=== PATIENT | male | born 1990 | race Caucasian/White ===

== ENCOUNTER 2023-12-27 13:08 | Emergency (ER) | payer MEDICAID ==
[~2023-12-27] VITALS: Ht 170.2 cm; Wt 84.0 kg
[2023-12-27 13:11] VITALS: TEMP 97.9
[2023-12-27] MEDS: HYDROCODONE/ACETAMINOPHEN 5-325 MG TABLET PO ONE (15:48)
[2023-12-27] MEDS: LIDOCAINE 1% 10 ML VIAL PERC ONE (15:48)
[2023-12-27] MEDS: PERTUSS(ACELL),DIPH,TET/PF 0.5 ML SYRINGE [ADULT] IM. ONE (15:49)
[2023-12-27] MEDS: CeFAZolin 2 GM/DEXTROSE 50 ML IV ONE (16:24)
[2023-12-27] MEDS ORDERED: IBUP-1492 PO (17:33)
[2023-12-27] MEDS ORDERED: CEPH-558 PO (17:33)
[2023-12-27] MEDS: BACITRACIN 0.9 GM PACKET OINTMENT TP ONE (17:35)
[2023-12-27 19:00] VITALS: BP 129/74; PULSE 78; RESP 17; O2SAT 98
== END 2023-12-27 19:20 | disposition home or self-care (01) ==
LOC: EMS 13:16
DX: S61.012A Laceration without foreign body of left thumb without damage to nail, initial encounter (principal)
CPT/HCPCS: 99284; 96374; 73140; 90715; 90471; 12002; J3490; J0690

== ENCOUNTER 2024-01-07 09:26 | Emergency (ER) | payer MEDICAID ==
[~2024-01-07] VITALS: Ht 172.7 cm; Wt 86.0 kg
[~2024-01-07 09:26] MED LIST: CEPH-558 PO; IBUP-1492 PO
[2024-01-07 09:47] VITALS: BP 112/73; PULSE 56; RESP 16; TEMP 98.1; O2SAT 100
== END 2024-01-07 10:01 | disposition home or self-care (01) ==
LOC: EMS 09:26
DX: S61.012D Laceration without foreign body of left thumb without damage to nail, subsequent encounter (principal); X58.XXXD Exposure to other specified factors, subsequent encounter
CPT/HCPCS: 99282; Z7502